=== PATIENT | female | born 1965 | race Caucasian/White ===

== ENCOUNTER → 2016-06-14 | Outpatient (CLI) | payer OTHER | LOC: FIMAGING 10:25 | DX: Z12.31 Encounter for screening mammogram for malignant neoplasm of breast (principal) | CPT/HCPCS: G0202-52 ==

== ENCOUNTER → 2016-09-07 | Outpatient (CLI) | payer OTHER ==
[~2016-09-07] MED LIST: IOPAMIDOL (ISOVUE-300) 100 ML BTL ONE
== END ==
LOC: CIMAGING 09:16
PROVIDERS: ATTEND Internal Medicine Gastroenterology
DX: R10.84 Generalized abdominal pain (principal); Z85.3 Personal history of malignant neoplasm of breast
CPT/HCPCS: 74177-PO; Q9967

== ENCOUNTER → 2016-09-22 | Outpatient (CLI) | payer OTHER | LOC: FIMAGING 15:27 | PROVIDERS: ATTEND Nurse Practitioner | DX: N63 Unspecified lump in breast (principal) ==

== ENCOUNTER → 2016-10-17 | Outpatient (CLI) | payer OTHER | LOC: FIMAGING 13:58 | PROVIDERS: ATTEND Internal Medicine | DX: Z13.820 Encounter for screening for osteoporosis (principal); M85.80 Other specified disorders of bone density and structure, unspecified site; Z85.3 Personal history of malignant neoplasm of breast; Z82.62 Family history of osteoporosis ==

== ENCOUNTER → 2017-01-06 | Outpatient (CLI) | payer OTHER ==
[~2017-01-06] MED LIST changes: +BUPIVACAINE 0.25% 30 ML SDV ONE; -IOPAMIDOL (ISOVUE-300) 100 ML BTL ONE; +LIDOCAINE 1% 300 MG/30 ML SDV ONE
== END ==
LOC: FIMAGING 07:46
PROVIDERS: ATTEND Orthopaedic Surgery
PROC: 3E0U3GC Introduction of Other Therapeutic Substance into Joints, Percutaneous Approach (ICD-10-PCS; principal; 2017-01-06)
DX: M65.851 Other synovitis and tenosynovitis, right thigh (principal)

== ENCOUNTER → 2017-06-16 | Outpatient (CLI) | payer OTHER | LOC: FIMAGING 10:24 | PROVIDERS: ATTEND Internal Medicine Hematology & Oncology | DX: Z12.31 Encounter for screening mammogram for malignant neoplasm of breast (principal); Z90.11 Acquired absence of right breast and nipple; Z85.3 Personal history of malignant neoplasm of breast ==

== ENCOUNTER → 2018-06-07 | Outpatient (CLI) | payer OTHER | LOC: EMCIMAGING 08:46 | PROVIDERS: ATTEND Internal Medicine Hematology & Oncology | DX: N63.23 Unspecified lump in the left breast, lower outer quadrant (principal); Z85.3 Personal history of malignant neoplasm of breast ==

== ENCOUNTER → 2018-06-18 | Outpatient (CLI) | payer OTHER ==
[~2018-06-18] MED LIST changes: -BUPIVACAINE 0.25% 30 ML SDV ONE; +BUPIVACAINE 0.5% 30 ML SDV ONE
== END ==
LOC: FIMAGING 07:28
PROVIDERS: ATTEND Internal Medicine Hematology & Oncology
PROC: 0HBU3ZX Excision of Left Breast, Percutaneous Approach, Diagnostic (ICD-10-PCS; principal; 2018-06-18)
PROC: BH01ZZZ Plain Radiography of Left Breast (ICD-10-PCS; principal; 2018-06-18)
DX: D24.2 Benign neoplasm of left breast (principal); N60.12 Diffuse cystic mastopathy of left breast; N60.82 Other benign mammary dysplasias of left breast; R92.0 Mammographic microcalcification found on diagnostic imaging of breast; C50.411 Malignant neoplasm of upper-outer quadrant of right female breast; Z17.0 Estrogen receptor positive status [ER+]